=== PATIENT | female | born 1950 | race Two or more races ===

== ENCOUNTER 2018-12-13 11:21 | Outpatient (CLI) | payer OTHER | END 2018-12-13 11:23 | disposition home or self-care (01) | LOC: RAD 11:21 | DX: E78.49 Other hyperlipidemia (principal); E11.42 Type 2 diabetes mellitus with diabetic polyneuropathy; I11.9 Hypertensive heart disease without heart failure; E11.51 Type 2 diabetes mellitus with diabetic peripheral angiopathy without gangrene; E11.21 Type 2 diabetes mellitus with diabetic nephropathy ==

== ENCOUNTER 2022-08-09 13:55 | Emergency (ER) | payer OTHER ==
[~2022-08-09] VITALS: Ht 154.9 cm; Wt 72.6 kg
== END 2022-08-09 15:56 | disposition home or self-care (01) ==
LOC: ER 13:55
DX: H00.14 Chalazion left upper eyelid (principal)

== ENCOUNTER 2022-08-14 09:59 | Outpatient (CLI) | payer OTHER | END 2022-08-14 10:04 | disposition home or self-care (01) | LOC: RAD 09:59 | DX: I70.0 Atherosclerosis of aorta (principal) ==

== ENCOUNTER 2022-11-09 08:31 | Outpatient (CLI) | payer OTHER | END 2022-11-09 08:42 | disposition home or self-care (01) | LOC: RAD 08:31 | PROVIDERS: ATTEND Orthopaedic Surgery | DX: M17.12 Unilateral primary osteoarthritis, left knee (principal) ==

== ENCOUNTER → 2022-12-11 | Outpatient (CLI) | payer OTHER | END | disposition home or self-care (01) | LOC: RAD 10:08 | PROVIDERS: ATTEND Surgery | DX: I10 Essential (primary) hypertension (principal) ==

== ENCOUNTER 2022-12-18 06:14 | Inpatient (IN) | payer OTHER ==
[~2022-12-18] VITALS: Ht 154.9 cm; Wt 73.9 kg
[~2022-12-18 06:14] MED LIST: ANASTROZOLE PO
== END 2022-12-19 15:23 | disposition home or self-care (01) | DRG 580 ==
LOC: CIR.AMB 06:14 → SURH 20:36
PROVIDERS: ADMIT Surgery; ATTEND Surgery
PROC: 0HBT0ZZ Excision of Right Breast, Open Approach (ICD-10-PCS; 2022-12-18)
PROC: 0HTT0ZZ Resection of Right Breast, Open Approach (ICD-10-PCS; 2022-12-18)
PROC: 07B60ZZ Excision of Left Axillary Lymphatic, Open Approach (ICD-10-PCS; principal; 2022-12-18 10:00)
DX: C50.812 Malignant neoplasm of overlapping sites of left female breast (principal); C77.3 Secondary and unspecified malignant neoplasm of axilla and upper limb lymph nodes; C50.411 Malignant neoplasm of upper-outer quadrant of right female breast; Z20.822 Contact with and (suspected) exposure to COVID-19

== ENCOUNTER 2022-12-26 20:02 | Emergency (ER) | payer OTHER ==
[~2022-12-26] VITALS: Ht 154.9 cm; Wt 73.5 kg
[2022-12-26] MEDS ORDERED: CONZIP100 MG PO (20:29)
[2022-12-26] MEDS ORDERED: AMOX1TAB5 PO (20:30)
== END 2022-12-26 22:29 | disposition home or self-care (01) ==
LOC: ER 20:02
DX: T85.618A Breakdown (mechanical) of other specified internal prosthetic devices, implants and grafts, initial encounter (principal); Z90.12 Acquired absence of left breast and nipple; I10 Essential (primary) hypertension; Z88.8 Allergy status to other drugs, medicaments and biological substances; Z91.018 Allergy to other foods

== ENCOUNTER 2023-06-16 07:00 | Inpatient (IN) | payer OTHER ==
[~2023-06-16 07:00] MED LIST changes: +AMOX1TAB5 PO; +CONZIP100 MG PO
[2023-06-16 08:30] LABS: HEMATOCRIT 36.5 % (36.0-45.00); HEMOGLOBIN 12.6 g/dL (12.0-15.00); MEAN CELL VOLUME 99.1 fL (80.00-100.00); MEAN CORPUSCULAR HEMOGLOBIN 34.3 pg (27.00-32.0); MEAN CORPUSCULAR HGB CONC 34.6 g/dl (32.0-36.0); PLATELET COUNT 218 K/uL (150-450); RED BLOOD COUNT 3.68 M/uL (4.00-6.00); RED CELL DISTRIBUTION WIDTH 15.3 % (11.5-14.5)
[2023-06-16 08:40] LABS: INR < 0.93; PARTIAL THROMBOPLASTIN TIME 30.6 SECONDS (22.0-34.0); PROTHROMBIN TIME 9.8 SECONDS (9.0-11.5)
[2023-06-16 08:44] LABS: ALBUMIN 3.8 gm/dL (3.4-5.0); BILIRUBIN TOTAL 0.55 mg/dL (0.3-1.2); CALCIUM 9.5 mg/dL (8.5-10.1); CREATININE SERUM 1.04 mg/dL (0.55-1.02); GFR 52.39; GLOBULINA 3.7 G/DL (2.4-3.5); POTASSIUM 3.88 mEq/L (3.5-5.1); TOTAL PROTEIN 7.5 gm/dL (6.4-8.2)
[2023-06-16 09:30] LABS: PH,URINE 5.5 (5.0-8.0); URINE APPEARANCE Clear; URINE BILIRRUBIN Negative (NEGATIVE); URINE BLOOD Trace; URINE COLOR Yellow; URINE GLUCOSE Negative (NEGATIVE); URINE LEUKOCYTE Moderate; URINE NITRATE Negative; URINE PROTEIN Negative (NEGATIVE); URINE UROBILINOGEN 0.2 E.U./dl
[2023-06-16 09:35] LABS: URINE BACTERIA 35.2 uL (0.0-1933); URINE EPITHELIAL CELLS 15.9 uL (0.0-38.8); URINE RBC 5.3 uL (0.0-20.8); URINE WBC 14.3 uL (0.0-23.2)
[2023-06-22] MEDS ORDERED: ANASTROZOLE1 MG (08:33)
[2023-06-22] MEDS ORDERED: HYDROCHLOROTH12.5 MG (08:33)
[2023-06-22] MEDS ORDERED: ATORVASTATIN CA10 MG (08:34)
[2023-06-23 07:04] LABS: HEMATOCRIT 29.8 % (36.0-45.00); HEMOGLOBIN 10.4 g/dL (12.0-15.00); MEAN CELL VOLUME 99.6 fL (80.00-100.00); MEAN CORPUSCULAR HEMOGLOBIN 34.8 pg (27.00-32.0); RED BLOOD COUNT 2.99 M/uL (4.00-6.00); RED CELL DISTRIBUTION WIDTH 14.8 % (11.5-14.5)
[2023-06-23] MEDS ORDERED: ELIQUIS2.5 MG PO (07:10)
[2023-06-23] MEDS ORDERED: PERCOCET 5-3251 EACH PO (07:10)
[2023-06-23] MEDS ORDERED: DUI500 PO (07:10)
[2023-06-23 07:27] LABS: PLATELET COUNT 67 K/uL (150-450)
[2023-06-23] MEDS ORDERED: VERZENIO150 MG PO (18:09)
[2023-06-24 07:07] LABS: HEMATOCRIT 29.1 % (36.0-45.00); HEMOGLOBIN 10.2 g/dL (12.0-15.00); MEAN CELL VOLUME 98.4 fL (80.00-100.00); MEAN CORPUSCULAR HEMOGLOBIN 34.3 pg (27.00-32.0); MEAN CORPUSCULAR HGB CONC 34.9 g/dl (32.0-36.0); PLATELET COUNT 148 K/uL (150-450); RED BLOOD COUNT 2.96 M/uL (4.00-6.00); RED CELL DISTRIBUTION WIDTH 14.8 % (11.5-14.5)
== END 2023-06-24 20:23 | DRG 470 ==
LOC: SURG 06-22 07:00 → O/R 06-22 07:51 → SURH 06-22 07:51
PROVIDERS: ADMIT Orthopaedic Surgery; ATTEND Orthopaedic Surgery
PROC: 0SRD0J9 Replacement of Left Knee Joint with Synthetic Substitute, Cemented, Open Approach (ICD-10-PCS; principal; 2023-06-22 07:00)
DX: M17.12 Unilateral primary osteoarthritis, left knee (principal); M22.12 Recurrent subluxation of patella, left knee; M81.6 Localized osteoporosis [Lequesne]; C50.919 Malignant neoplasm of unspecified site of unspecified female breast; D63.0 Anemia in neoplastic disease

== ENCOUNTER 2023-07-07 23:41 | Emergency (ER) | payer OTHER ==
[~2023-07-07] VITALS: Ht 152.4 cm; Wt 68.0 kg
[~2023-07-07 23:41] MED LIST changes: +ANASTROZOLE1 MG; +ATORVASTATIN CA10 MG; +DUI500 PO; +ELIQUIS2.5 MG PO; +HYDROCHLOROTH12.5 MG; +PERCOCET 5-3251 EACH PO; +VERZENIO150 MG PO
[2023-07-08] MEDS ORDERED: NORFLEX100MG PO (06:49)
== END 2023-07-08 07:24 ==
LOC: ER 23:41
DX: M25.512 Pain in left shoulder (principal); Z88.8 Allergy status to other drugs, medicaments and biological substances; Z91.018 Allergy to other foods; Z85.89 Personal history of malignant neoplasm of other organs and systems
CPT/HCPCS: 96372; 99284; J1885; J2360

== ENCOUNTER 2024-05-05 10:56 | Emergency (ER) | payer OTHER ==
[~2024-05-05] VITALS: Ht 154.9 cm; Wt 72.6 kg
[~2024-05-05 10:56] MED LIST changes: +NORFLEX100MG PO
[2024-05-05 11:29] VITALS: BP 160/79; O2SAT 98
[2024-05-05 12:52] LABS: HEMATOCRIT 36.3 % (36.0-45.00); HEMOGLOBIN 12.7 g/dL (12.0-15.00); MEAN CELL VOLUME 101.5 fL (80.00-100.00); MEAN CORPUSCULAR HEMOGLOBIN 35.4 pg (27.00-32.0); MEAN CORPUSCULAR HGB CONC 34.9 g/dl (32.0-36.0); PLATELET COUNT 268 K/uL (150-450); RED BLOOD COUNT 3.58 M/uL (4.00-6.00)
[2024-05-05 13:17] LABS: CALCIUM 9.6 mg/dL (8.5-10.1); CREATININE SERUM 1.01 mg/dL (0.55-1.02); GFR 54.03; POTASSIUM 4.15 mEq/L (3.5-5.1)
== END 2024-05-05 15:32 | disposition home or self-care (01) ==
LOC: ER 10:58
PROVIDERS: General Practice
DX: M79.661 Pain in right lower leg (principal); Z85.3 Personal history of malignant neoplasm of breast; E11.9 Type 2 diabetes mellitus without complications; Z88.8 Allergy status to other drugs, medicaments and biological substances; Z91.018 Allergy to other foods